=== PATIENT | female | born 1975 | race African-American/Black ===

== ENCOUNTER 2019-03-09 10:12 | Emergency (ER) | payer OTHER ==
[~2019-03-09] VITALS: Ht 170.2 cm; Wt 84.4 kg
[2019-03-09] MEDS ORDERED: MESTINON60 MG PO (10:58)
[2019-03-09] MEDS ORDERED: PREDNISONE 10 M10 MG PO (10:59)
[2019-03-09] MEDS ORDERED: LOPRESSOR25 PO (11:00)
[2019-03-09] MEDS ORDERED: MULTI FOR HER1 EAC1 PO (11:01)
[2019-03-09] MEDS ORDERED: ACID REFLUX MED (11:02)
[2019-03-09] MEDS ORDERED: NORFLEX100 MG PO (11:35)
[2019-03-09] MEDS ORDERED: MOBIC15 MG PO (11:35)
[2019-03-09 12:00] VITALS: BP 117/77
== END 2019-03-09 12:02 | disposition home or self-care (01) ==
LOC: ER 10:12
DX: S39.012A Strain of muscle, fascia and tendon of lower back, initial encounter (principal); S29.012A Strain of muscle and tendon of back wall of thorax, initial encounter; R51 Headache; I10 Essential (primary) hypertension; V89.2XXA Person injured in unspecified motor-vehicle accident, traffic, initial encounter; Y92.89 Other specified places as the place of occurrence of the external cause; Y93.89 Activity, other specified; Y99.8 Other external cause status